=== PATIENT | male | born 1995 | race American Indian/Alaskan Native ===

== ENCOUNTER 2019-07-11 08:48 | Emergency (ER) | payer OTHER ==
[2019-07-11 09:02] VITALS: BP 131/77
[2019-07-11 09:47] LABS: Bilirubin,Urine NEG (Negative); Blood,Urine SM (Negative); Color,Urine Amber (Yellow); Mucus,Urine 2+ /HPF
[2019-07-11 09:53] LABS: WBC,Urine > 182.0 /HPF (0.0-6.0)
[2019-07-11] MEDS ORDERED: ROCEPHIN IM ONE (09:56)
[2019-07-11] MEDS ORDERED: XYLOCAINE 1% MPF 5 mL INFILTRATI ONE (09:56)
[2019-07-11] MEDS ORDERED: ZITHROMAX PO ONE (09:56)
--- NOTE | 2019-07-11 09:56 | Emergency Department Report ---
ED Male HPI - General Chief complaint: Urogenital-Male Stated complaint: PAIN/SWELLING IN PENIS Time Seen by Provider: 07/11/19 09:47 Source: patient Mode of arrival: Ambulatory Limitations: No Limitations - History of Present Illness MD Complaint: penile discharge, dysuria -: days(s) (5) Location: penis Radiation: none Severity: moderate Quality: burning denies other symptoms, discharge - Related Data Sexually active: Yes Allergies Allergy/AdvReac Type Severity Reaction Status Date / Time No Known Allergies Allergy Unverified 07/11/19 08:52 ED Review of Systems ROS: Stated complaint: PAIN/SWELLING IN PENIS Other details as noted in HPI Comment: All other systems reviewed and negative Constitutional: denies: chills, fever Respiratory: denies: cough, orthopnea, shortness of breath, SOB with exertion, SOB at rest, stridor, wheezing Cardiovascular: denies: chest pain, palpitations Gastrointestinal: denies: abdominal pain, nausea, vomiting Neurological: denies: headache ED Past Medical Hx - Past Medical History Previous Medical History?: No - Surgical History Past Surgical History?: No - Social History Smoking Status: Current Every Day Smoker Substance Use Type: Alcohol, Marijuana ED Physical Exam - General Limitations: No Limitations General appearance: alert, in no apparent distress - Head Head exam: Present: atraumatic, normocephalic, normal inspection - Eye Eye exam: Present: normal appearance - ENT ENT exam: Present: normal exam, normal orophraynx, mucous membranes moist - Neck Neck exam: Present: normal inspection, full ROM. Absent: tenderness, meningismus, lymphadenopathy, thyromegaly - Respiratory Respiratory exam: Present: normal lung sounds bilaterally - Cardiovascular Cardiovascular Exam: Present: normal heart sounds - GI/Abdominal GI/Abdominal exam: Present: soft, normal bowel sounds. Absent: distended, tenderness, guarding, rebound, rigid - exam: Present: urethral discharge. Absent: testicular tenderness, scrotal swelling, vertical testicular lie External exam: Absent: erythema, swelling, lesions - Neurological Exam Neurological exam: Present: alert, oriented X3, CN II-XII intact ED Course Vital Signs 07/11/19 08:52 Temperature 97.5 F L Pulse Rate 98 H Respiratory 16 Rate Blood Pressure 131/77 O2 Sat by Pulse 98 Oximetry ED Medical Decision Making - Medical Decision Making Patient with obvious penile discharge. Patient treated with Rocephin at 250 mg IM and Zithromax 1 g. Patient also given a prescription for ciprofloxacin for 10 days and advised to follow-up with his primary care physician in the next 2-3 days and to return to the ER if symptoms are not improved. Patient also given a print out and instruction about safe sex. Critical care attestation.: If time is entered above; I have spent that time in minutes in the direct care of this critically ill patient, excluding procedure time. ED Disposition Clinical Impression: Penile discharge, STD (male) Disposition: - TO HOME OR SELFCARE Is pt being admited?: No Condition: Stable Instructions: Sexually Transmitted Diseases (ED) Referrals: ISMA STEPHENS MD [Primary Care Provider] - 3-5 Days
== END 2019-07-11 10:40 | disposition home or self-care (01) ==
LOC: ED 08:48
DX: A64 Unspecified sexually transmitted disease (principal); F17.200 Nicotine dependence, unspecified, uncomplicated; F12.10 Cannabis abuse, uncomplicated
CPT/HCPCS: 81001; 87591; 96372; 99283; J0696